=== PATIENT | female | born 1970 | race Caucasian/White ===

== ENCOUNTER 2016-04-12 09:05 | Emergency (ER) | END 2016-04-12 12:00 | disposition home or self-care (01) | DX: R10.2 Pelvic and perineal pain (principal) | CPT/HCPCS: 81001; 81003; Z7502; Z7610 ==

== ENCOUNTER 2016-06-06 09:10 | Day surgery (SDC) | payer OTHER ==
[2016-06-06] VITALS (9 sets, daily range): BP systolic 100–122; BP diastolic 48–70; PULSE 69–110; RESP 15–23; Ht 149.9 cm; Wt 62.1 kg
[~2016-06-06] VITALS: Ht 149.9 cm; Wt 62.1 kg
[~2016-06-06 09:10] MED LIST: CEPH-443 PO; IBUP-1542 PO; NAPR-260 PO; PROVENTIL HFA 6.7GM INHALER ONE
[2016-06-06] MEDS ORDERED: RANI300T PO (09:48)
[2016-06-06] MEDS ORDERED: BUPR300T36 PO (09:49)
[2016-06-06] MEDS ORDERED: LACTATED RINGER'S 1,000 ML IV SCH (10:00)
[2016-06-06 10:40] LABS: ADD SCAN DIFF NO
[2016-06-06 10:47] LABS: BASOPHILS % 0.4 % (0.0-2.0); EOSINOPHILS # 0.1 10^3/ul (0.0-0.5); EOSINOPHILS % 2.8 % (0.0-7.0); HEMATOCRIT 37.2 % (37.0-47.0); HEMOGLOBIN 12.2 g/dl (12.0-16.0); LYMPHOCYTES # 1.9 10^3/ul (0.8-2.9); LYMPHOCYTES % 39.5 % (15.0-51.0); MEAN CORPUSCULAR HEMOGLOBIN 28.8 pg (29.0-33.0); MEAN CORPUSCULAR HGB CONC 32.8 g/dl (32.0-37.0); MEAN CORPUSCULAR VOLUME 87.7 fl (82.0-101.0); MONOCYTE # 0.3 10^3/ul (0.3-0.9); MONOCYTES % 7.3 % (0.0-11.0); NEUTROPHIL # 2.3 10^3/ul (1.6-7.5); NEUTROPHILS % 49.8 % (39.0-77.0); PLATELET COUNT 239 10^3/UL (140-415); RED BLOOD COUNT 4.24 10^6/ul (4.20-5.40); WHITE BLOOD COUNT 4.7 10^3/ul (4.8-10.8)
[2016-06-06] MEDS ORDERED: LIDOCAINE 1%/EPI 30 ML INJ ONE (11:50)
[2016-06-06] MEDS ORDERED: FAMOTIDINE 20 MG INJ ONE (12:34)
[2016-06-06] MEDS ORDERED: METOCLOPRAMIDE 10 MG INJ ONE (12:34)
[2016-06-06] MEDS ORDERED: PROPOFOL 20 ML ONE (12:35)
[2016-06-06] MEDS ORDERED: SUCCINYLCHOLINE CHLORIDE 100 MG/5 ML SYG IV ONE (12:35)
[2016-06-06] MEDS ORDERED: MIDAZOLAM 1 MG/ML 2 ML INJ ONE (12:35)
[2016-06-06] MEDS ORDERED: FENTAnyl 50 MCG/ML VIAL ONE (12:35)
[2016-06-06] MEDS ORDERED: LIDOCAINE 1%/EPI 30 ML INJ INJ ONE (13:00)
[2016-06-06] MEDS ORDERED: DEXAMETHASONE 4 MG/ML 1 ML INJ ONE (13:02)
[2016-06-06] MEDS ORDERED: ONDANSETRON 4 MG INJ ONE (13:02)
[2016-06-06] MEDS ORDERED: PHENYLephrine (100 MCG/ML) 5ML SYG ONE (13:03)
[2016-06-06] MEDS ORDERED: CEFAZOLIN 1 GM INJ ONE (13:14)
[2016-06-06] MEDS ORDERED: GLYCOPYRROLATE 0.4 MG INJ ONE (13:31)
[2016-06-06] MEDS ORDERED: ALBUTEROL 0.083% (NEB) 2.5 MG/3 ML AMP ONE (13:39)
--- NOTE | 2016-06-06 13:59 | PREOPHP ---
DATE OF ADMISSION: 06/06/2016 HISTORY OF PRESENT ILLNESS: A 46-year-old female 2, para 2, last menstrual period 7 is admitted due to cervical dysplasia. PAST MEDICAL HISTORY: Unremarkable. PAST SURGICAL HISTORY: section and shoulder surgery. ALLERGIES: NO KNOWN DRUG ALLERGIES. FAMILY HISTORY: Noncontributory. PHYSICAL EXAMINATION: VITAL SIGNS: The patient is afebrile. Vital signs stable. HEAD/NECK: Within normal limits. CHEST: Within normal limits. ABDOMEN: Soft, nontender, nondistended. PELVIC: Normal. EXTREMITIES: Within normal limits. NEUROLOGIC: Within normal limits. IMPRESSION: Cervical dysplasia. PLAN: Loop electrosurgical excision procedure. Risks, benefits and alternatives of the procedure w ere explained to the patient. The patient said she understood and gave informed consent for the pro cedure. Dictated By: YUKO ALVAREZ/CECELIA Conf#: [id number] DID#: [id number]
--- NOTE | 2016-06-06 15:49 | OPR ---
DATE OF OPERATION: 06/06/2016 PREOPERATIVE DIAGNOSIS: Cervical dysplasia. POSTOPERATIVE DIAGNOSIS: Cervical dysplasia. OPERATION PERFORMED: Loop electrosurgical excision procedure. SURGEON: Dr. Hinkle. ANESTHESIA: General. ANESTHESIOLOGIST: Dr. Tan. PROCEDURE: The patient was taken to the operating room and placed on the operating table in supine position. After adequate general anesthesia was given, the patient was placed in dorsal lithotomy p osition. The area was prepared and draped in the usual sterile fashion. Speculum was placed inside the vagina and using 1% solution of lidocaine with epinephrine, the cervix was injected. Using a s emicircular loop, a portion of the upper cervix and lower cervix was excised and sent to pathology. Next, using a square loop, a portion of endocervix was excised and sent to pathology. Using Selvin clark curet, endocervical curettage was performed and specimen obtained was sent to pathology. Using ball tip Bovie, small bleeders were cauterized. Surgicel soaked in Monsel solution was applied to t he site. All the instruments were removed. Adequate hemostasis was assured. The patient tolerated the procedure well. Patient was awakened from anesthesia and transferred to recovery in stable con dition. ESTIMATED BLOOD LOSS: Minimal. COUNTS: All counts were correct. Dictated By: YUKO ALVAREZ/CECELIA Conf#: [id number] DID#: [id number]
--- NOTE | 2016-06-07 14:58 | RADRPT ---
Vent Rate: 62 bpm RR Interval: 0 msec IN Interval: 164 msec QRS Duration: 88 msec QT Interval: 426 msec QTC Interval: 432 msec P-R-T [place]: 39 - 101 - 61 degrees Normal sinus rhythm Rightward axis Borderline ECG Electronically Signed By: Tk Voss [id number]
== END 2016-06-06 16:16 | disposition home or self-care (01) ==
LOC: SDS 09:10
PROVIDERS: ATTEND Obstetrics & Gynecology
DX: N72 Inflammatory disease of cervix uteri (principal)
CPT/HCPCS: 57522; 84703; 85025; 86850; 86900; 86901; 88305; 93005; J0330; J0690; J1100; J2250; J2370; J2405; J2765; J3010; Z7512; Z7610

== ENCOUNTER 2016-07-12 06:08 | Day surgery (SDC) | payer OTHER ==
[~2016-07-12] VITALS: Ht 147.3 cm; Wt 62.5 kg
[~2016-07-12 06:08] MED LIST changes: +BUPR300T36 PO; -CEPH-443 PO; -IBUP-1542 PO; -NAPR-260 PO; -PROVENTIL HFA 6.7GM INHALER ONE; +RANI300T PO
[2016-07-12 07:32] VITALS: Ht 147.3 cm; Wt 62.5 kg
[2016-07-12] MEDS ORDERED: GEMF600T60 PO (07:39)
[2016-07-12 07:57] VITALS: BP 122/62; PULSE 68; RESP 16
[2016-07-12] MEDS ORDERED: FENTAnyl 50 MCG/ML VIAL ONE (08:37)
[2016-07-12] MEDS ORDERED: MIDAZOLAM 1 MG/ML 2 ML INJ ONE ×2 (08:37)
[2016-07-12 08:57] VITALS: BP 100/56; PULSE 69; RESP 20
--- NOTE | 2016-07-12 10:43 | GILP ---
DATE OF PROCEDURE: NAME OF PROCEDURES: 1. Esophagogastroduodenoscopy and biopsy. 2. Colonoscopy and biopsy. SURGEON: Hilda Quintero MD PREOPERATIVE DIAGNOSES: 1. Chronic heartburn. 2. Change in the bowel habit with increased frequency of stool. POSTOPERATIVE DIAGNOSES: 1. Gastroesophageal reflux disease. 2. Multiple gastric polyps and biopsies were taken for histopathology. 3. Colonoscopy all the way to the cecum. 4. Small internal hemorrhoids. 5. Random biopsies were taken to rule out microscopic colitis. INDICATION FOR THE PROCEDURE: Ms. Colleen Brewer is a 46-year-old female patient who had chronic hea rtburn, not responding to therapy. She had left lower quadrant abdominal pain associated with del angel e in the bowel habit with increased frequency of stool. The patient was scheduled for endoscopy and colonoscopy for further evaluation. The procedures and possible complications were well explained to the patient, she understood and con sented to the procedure. DESCRIPTION OF PROCEDURE: Under the influence of fentanyl and Versed, the gastroscope was carefully introduced into the esophagus and under direct vision, it was advanced to the stomach and through t he pylorus into the duodenal bulb and descending duodenum. FINDINGS: ESOPHAGUS: The patient had gastroesophageal reflux disease. STOMACH: She had gastritis with multiple gastric polyps and biopsies were taken for histopathology. DUODENUM: Normal. The colonoscope was carefully introduced in the rectum and under direct vision, it was advanced all the way to the cecum. FINDINGS: The patient had small internal hemorrhoids. Random biopsies were taken to rule out micro scopic colitis. She tolerated the procedures very well and there was no complication from the procedures. At the en d of the procedures, she was awake with stable vital signs and she was discharged home to the care o f her family. IMPRESSION: 1. Gastroesophageal reflux disease. 2. Multiple gastric polyps and biopsies were taken for histopathology. 3. Colonoscopy all the way to the cecum. 4. Small internal hemorrhoids. Random biopsies were taken to rule out microscopic colitis. PLAN 1. Zantac 300 mg p.o. b.i.d. 2. Bentyl 10 mg p.o. t.i.d. a.c. 3. Await histopathology reports. Dictated By: HILDA ALVAREZ/CECELIA Conf#: [id number] DID#: [id number]
== END 2016-07-12 09:43 | disposition home or self-care (01) ==
LOC: GIL 06:08
PROVIDERS: ATTEND Internal Medicine Gastroenterology
DX: R19.4 Change in bowel habit (principal); K21.9 Gastro-esophageal reflux disease without esophagitis; K31.7 Polyp of stomach and duodenum; K64.8 Other hemorrhoids
CPT/HCPCS: 43239; 45380; 84703; 88305; 88312; J2250; J3010; Z7610

== ENCOUNTER 2017-04-18 12:00 | Emergency (ER) | END 2017-04-18 15:26 | disposition home or self-care (01) ==